=== PATIENT | female | born 1955 | race Caucasian/White ===

== ENCOUNTER 2023-07-28 13:45 | Emergency (ER) | payer BC ==
[~2023-07-28] VITALS: Ht 162.6 cm; Wt 109.1 kg
[2023-07-28 15:00] VITALS: BP 129/87; PULSE 84; RESP 18; TEMP 97.9; O2SAT 97
[2023-07-28] MEDS ORDERED: NAPR-746 PO (16:01)
== END 2023-07-28 16:10 | disposition home or self-care (01) ==
LOC: ER 13:45
DX: I83.811 Varicose veins of right lower extremity with pain (principal); Z79.899 Other long term (current) drug therapy
CPT/HCPCS: 93971